=== PATIENT | male | born 1990 | race Caucasian/White ===

== ENCOUNTER 2019-09-16 17:14 | Emergency (ER) | payer OTHER ==
[~2019-09-16] VITALS: Ht 180 cm; Wt 76.2 kg
[2019-09-16] MEDS ORDERED: HYDROcodone/APAP 5 MG/325 MG (LORTAB) TAB PO ONE (17:30)
[2019-09-16] MEDS ORDERED: NS 100 ML (IVPB) BAG IV ONE (17:30)
[2019-09-16] MEDS ORDERED: IOHEXOL 350 MG/ML 100 ML (OMNIPAQUE 350) VIAL IV ONE (17:30)
[2019-09-16] MEDS ORDERED: HOLD METFORMIN - RECEIVED CONTRAST 20 ML VIAL IV SCH (17:30)
[2019-09-16] MEDS ORDERED: KETOROLAC 15 MG/ML VIAL IVP ONE (17:30)
[2019-09-16] MEDS ORDERED: CATHETER FLUSH 10 ML SYR IV PRN (17:30)
--- NOTE | 2019-09-16 17:35 | ED General ---
General Stated Complaint: RIGHT RIB PAIN Source of Information: Patient (BERNARD FERGUSON MD) History of Present Illness Date Seen by Provider: Sep 16, 2019 Time Seen by Provider: 17:30 Initial Comments Patient presenting to emergency department for evaluation of right lower chest and right upper quadrant abdominal pain that he thinks started last Monday morning at 2 in the morning when he was wrestling with a friend he felt some discomfort at that time but did not hurt later in the day so he did not think too much of it. 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 This is being considered Workmen's Comp. patient has a history of asthma but no other medical problems. He denies any fevers chills nausea vomiting productive cough. He appears uncomfortable but nontoxic with normal vital signs including normal oxygen saturation of 100%. (YUKI MAYNARD DO) Allergies and Home Medications Allergies Coded Allergies: No Known Drug Allergies (Unverified , 09/16/19) Home Medications Cyclobenzaprine HCl 10 Mg Tablet, 10 MG PO Q8H PRN for SPASMS Prescribed by: BERNARD FERGUSON on 09/16/191955 Ibuprofen 800 Mg Tablet, 800 MG PO Q8H PRN for PAIN Prescribed by: BERNARD FERGUSON on 09/16/191955 Patient Home Medication List Home Medication List Reviewed: Yes (YUKI MAYNARD DO) Home Medication List Reviewed: Yes (BERNARD FERGUSON MD) Review of Systems Review of Systems Constitutional: no symptoms reported EENTM: no symptoms reported Respiratory: short of breath Cardiovascular: chest pain Gastrointestinal: abdominal pain (RUQ) Genitourinary: no symptoms reported Musculoskeletal: no symptoms reported Skin: no symptoms reported Psychiatric/Neurological: No Symptoms Reported (YUKI MAYNARD DO) All Other Systems Reviewed Negative Unless Noted: Yes (YUKI MAYNARD DO) Past Mbawkbh-Udrjdx-Uhukdk Hx Patient Social History Recent Foreign Travel: No Contact w/Someone Who Travel: No (YUKI MAYNARD DO) Physical Exam Vital Signs Vital Signs - First Documented 09/16/19 09/16/19 17:20 19:47 Temp 36.7 Pulse 76 Resp 16 B/P (MAP) 147/90 (109) Pulse Ox 100 O2 Delivery Room Air (BERNARD FERGUSON MD) Vital Signs Capillary Refill : (YUKI MAYNARD DO) Height, Weight, BMI Height: '" Weight: lbs. oz. kg; BMI Method: General Appearance: No Apparent Distress, WD/WN HEENT: PERRL/EOMI Neck: Supple Respiratory: No Accessory Muscle Use, No Respiratory Distress, Wheezing (bilateral), Other (chest wall ttp on R lower ribs. Good aeration of lungs but BL wheezing noted.) Cardiovascular: Regular Rate, Rhythm Gastrointestinal: Soft, Tenderness (RUQ with no rebound or guarding.) Back: Normal Inspection Extremity: Normal Capillary Refill Neurologic/Psychiatric: Alert, Oriented x3 Skin: Warm/Dry (YUKI MAYNARD DO) Progress/Results/Core Measures Suspected Sepsis SIRS Temperature: Pulse: Respiratory Rate: Blood Pressure / Mean: (YUKI MAYNARD DO) Results/Orders Lab Results Laboratory Tests Test 09/16/19 17:37 Range/Units White Blood Count 8.3 4.3-11.0 10^3/uL Red Blood Count 4.87 4.35-5.85 10^6/uL Hemoglobin 15.7 13.3-17.7 G/DL Hematocrit 45 40-54 % Mean Corpuscular Volume 92 80-99 FL Mean Corpuscular Hemoglobin 32 25-34 PG Mean Corpuscular Hemoglobin Concent 35 32-36 G/DL Red Cell Distribution Width 11.6 10.0-14.5 % Platelet Count 227 130-400 10^3/uL Mean Platelet Volume 10.2 7.4-10.4 FL Neutrophils (%) (Auto) 61 42-75 % Lymphocytes (%) (Auto) 30 12-44 % Monocytes (%) (Auto) 6 0-12 % Eosinophils (%) (Auto) 2 0-10 % Basophils (%) (Auto) 1 0-10 % Neutrophils # (Auto) 5.1 1.8-7.8 X 10^3 Lymphocytes # (Auto) 2.5 1.0-4.0 X 10^3 Monocytes # (Auto) 0.5 0.0-1.0 X 10^3 Eosinophils # (Auto) 0.2 0.0-0.3 10^3/uL Basophils # (Auto) 0.1 0.0-0.1 10^3/uL Sodium Level 138 135-145 MMOL/L Potassium Level 4.1 3.6-5.0 MMOL/L Chloride Level 100 98-107 MMOL/L Carbon Dioxide Level 27 21-32 MMOL/L Anion Gap 11 5-14 MMOL/L Blood Urea Nitrogen 14 7-18 MG/DL Creatinine 0.98 0.60-1.30 MG/DL Estimat Glomerular Filtration Rate > 60 BUN/Creatinine Ratio 14 Glucose Level 78 70-105 MG/DL Calcium Level 9.7 8.5-10.1 MG/DL Corrected Calcium 9.3 8.5-10.1 MG/DL Total Bilirubin 0.3 0.1-1.0 MG/DL Aspartate Amino Transf (AST/SGOT) 27 5-34 U/L Alanine Aminotransferase (ALT/SGPT) 33 0-55 U/L Alkaline Phosphatase 59 40-136 U/L Total Protein 7.5 6.4-8.2 GM/DL Albumin 4.5 3.2-4.5 GM/DL Lipase 27 8-78 U/L (BERNARD FERGUSON MD) Medications Given in ED Current Medications Medications Dose Ordered Sig/Justin Route Start Time Stop Time Status Last Admin Dose Admin Acetaminophen/ Hydrocodone Bitart 2 tab ONCE ONCE PO 09/16/19 17:30 09/16/19 17:31 DC 09/16/19 17:41 2 TAB Iohexol 100 ml ONCE ONCE IV 09/16/19 17:30 09/16/19 17:32 DC 09/16/19 18:03 100 ML Ketorolac Tromethamine 15 mg ONCE ONCE IVP 09/16/19 17:30 09/16/19 17:31 DC 09/16/19 17:41 15 MG Sodium Chloride 10 ml NEEDED PRN IV 09/16/19 17:30 09/16/19 20:04 DC 09/16/19 18:03 10 ML Sodium Chloride 100 ml ONCE ONCE IV 09/16/19 17:30 09/16/19 17:32 DC 09/16/19 18:03 100 ML (BERNARD FERGUSON MD) Vital Signs/I&O 09/16/19 09/16/19 17:20 19:47 Temp 36.7 Pulse 76 70 Resp 16 16 B/P (MAP) 147/90 (109) 136/90 Pulse Ox 100 98 O2 Delivery Room Air (BERNARD FERGUSON MD) Vital Signs/I&O Capillary Refill : (YUKI MAYNARD DO) Progress Note : Progress Note Given his appearance and benign physical exam and vital signs a suspect this is morbidly rib and abdominal wall contusion than anything else. He does say that he feels a pop and some shortness of breath so I will get CT imaging to rule out intra-thoracic or intra-abdominal trauma. It is possible he could have a pneumothorax. Rib fractures possibility as well. I will treat his pain check CT chest abdomen pelvis and reassess. Workup pending at time of shift change at 1800. Transfer of care to Dr. Ferguson. (YUKI MAYNARD DO) Progress Note #1: Time: 18:00 Progress Note I assumed care of the patient from Dr. Maynard at shift change. CT scan of his chest abdomen pelvis are pending. His lab work is also pending. Progress Note #2: Time: 18:38 Progress Note CBC and chemistry did not demonstrate any acute significant abnormalities. His CT scan came back with no definite fractures or signs of internal bleeding or acute injury. Will treat for acute contusion and muscle strain. Will review results with patient and his employer. Counseled on follow-up and have him see work comp for continued concerns and evaluation. (BERNARD FERGUSON MD) Diagnostic Imaging Diagonstic Imaging: CT Plain Films/CT/US/NM/MRI: chest, abdomen, pelvis Comments NAME: OFELIA PAYNE [facility] REC#: [id number] PT STATUS: REG ER : 1990 PHYSICIAN: YUKI MAYNARD DO ADMIT DATE: 09/16/19/ER FS Signed POSDate of Exam:09/16/19 CT CHEST/ABDOMEN/PELVIS W PROCEDURE: CT chest, abdomen, and pelvis with contrast. TECHNIQUE: Multiple contiguous axial images were obtained through the chest, abdomen, and pelvis after the administration of intravenous contrast. Auto Exposure Controls were utilized during the CT exam to meet ALARA standards for radiation dose reduction. INDICATION: Chest wall pain after wrestling. COMPARISON: None. CT chest: The heart size is within normal limits. No pericardial effusion is present. There is no mediastinal, hilar, or axillary lymphadenopathy. The lung windows demonstrate no pulmonary nodules or masses. There are no focal areas of consolidation. No pneumothoraces are present. No central endobronchial obstructing lesions are identified. There are no pleural effusions or pneumothorax. The osseous structures demonstrate no acute abnormalities. CT abdomen: The liver, spleen, pancreas, adrenal glands, and kidneys have a normal appearance. There is no pathologically enlarged mesenteric or retroperitoneal adenopathy. The bowel loops are nondilated. There is no free fluid or free air. The osseous structures are age-appropriate. Ureters and bladder are grossly normal. There is no free air, loculated collection, or adenopathy in the pelvis. IMPRESSION: 1. No acute abnormalities in the chest, abdomen and pelvis. No acute osseous abnormalities. Dictated by: Dictated on workstation # [id number] Dict: 09/16/191819 Trans: 09/16/191822 [facility] [id number] Interpreted by: HUBERT TSAI DO Electronically signed by: HUBERT TSAI DO 09/16/191822 (BERNARD FERGUSON MD) Departure Impression Primary Impression: Contusion of rib on right side Qualified Codes: S20.211A - Contusion of right front wall of thorax, initial encounter Additional Impressions: Muscle strain of anterior chest wall Muscle spasm Disposition: 01 HOME, SELF-CARE Condition: Stable Departure-Patient Inst. Decision time for Depature: 19:51 (BERNARD FERGUSON MD) Referrals: RUBI CARLOS MD NO,LOCAL PHYSICIAN (PCP) Primary Care Physician Patient Instructions: CHEST CONTUSION, Contusion (DC), Muscle Spasms (DC), Muscle Strain (DC) Add. Discharge Instructions: Light duty until cleared by Workers Compensation [facility]. Call in am to arrange follow up appointment. Follow restrictions below until cleared by Workers Compensation Clinic: No lifting, pulling and/or pushing over 10 pounds. No reaching above the shoulder/chest. No operating electrical equipment/dangerous machinery while taking muscle relaxers. Apply ice packs for 1st 1 or 2 days for 20 minutes 4 times a day. Scripts Ibuprofen (Ibuprofen) 800 Mg Tablet 800 MG PO Q8H PRN for PAIN for 10 Days, #30 TAB 0 Refills Prov: BERNARD FERGUSON MD 09/16/19 Cyclobenzaprine HCl (Cyclobenzaprine HCl) 10 Mg Tablet 10 MG PO Q8H PRN for SPASMS for 5 Days, #15 TAB 0 Refills Prov: BERNARD FERGUSON MD 09/16/19 YUKI MAYNARD DO Sep 16, 2019 17:35 BERNARD HARRELL MD Sep 16, 2019 18:40 POS
[2019-09-16 17:45] LABS: HEMATOCRIT 45 % (40-54); HEMOGLOBIN 15.7 G/DL (13.3-17.7); MEAN CORPUSCULAR HEMOGLOBIN 32 PG (25-34); MEAN CORPUSCULAR HGB CONC 35 G/DL (32-36); MEAN CORPUSCULAR VOLUME 92 FL (80-99); MEAN PLATELET VOLUME 10.2 FL (7.4-10.4); PLATELET COUNT 227 10^3/uL (130-400); RED CELL DISTRIBUTION WIDTH 11.6 % (10.0-14.5); WHITE BLOOD COUNT 8.3 10^3/uL (4.3-11.0)
[2019-09-16 17:46] LABS: BASOPHILS # (AUTO) 0.1 10^3/uL (0.0-0.1); BASOPHILS % (AUTO) 1 % (0-10); EOSINOPHILS # (AUTO) 0.2 10^3/uL (0.0-0.3); EOSINOPHILS % (AUTO) 2 % (0-10); LYMPHOCYTES # (AUTO) 2.5 X 10^3 (1.0-4.0); LYMPHOCYTES % (AUTO) 30 % (12-44); MONOCYTES # (AUTO) 0.5 X 10^3 (0.0-1.0); MONOCYTES % (AUTO) 6 % (0-12); NEUTROPHILS # (AUTO) 5.1 X 10^3 (1.8-7.8); NEUTROPHILS % (AUTO) 61 % (42-75)
[2019-09-16 18:10] LABS: ALANINE AMINOTRANSFERASE 33 U/L (0-55); ALBUMIN 4.5 GM/DL (3.2-4.5); ALKALINE PHOSPHATASE 59 U/L (40-136); BILIRUBIN,TOTAL 0.3 MG/DL (0.1-1.0); BUN/CREATININE RATIO 14; CALCIUM 9.7 MG/DL (8.5-10.1); CARBON DIOXIDE 27 MMOL/L (21-32); CHLORIDE 100 MMOL/L (98-107); CREATININE SERUM 0.98 MG/DL (0.60-1.30); GFR ESTIMATED > 60; GLUCOSE 78 MG/DL (70-105); LIPASE 27 U/L (8-78); POTASSIUM 4.1 MMOL/L (3.6-5.0); SODIUM 138 MMOL/L (135-145); TOTAL PROTEIN 7.5 GM/DL (6.4-8.2)
--- NOTE | 2019-09-16 18:24 | Diagnostic Imaging Report ---
PROCEDURE: CT chest, abdomen, and pelvis with contrast. TECHNIQUE: Multiple contiguous axial images were obtained through the chest, abdomen, and pelvis after the administration of intravenous contrast. Auto Exposure Controls were utilized during the CT exam to meet ALARA standards for radiation dose reduction. INDICATION: Chest wall pain after wrestling. COMPARISON: None. CT chest: The heart size is within normal limits. No pericardial effusion is present. There is no mediastinal, hilar, or axillary lymphadenopathy. The lung windows demonstrate no pulmonary nodules or masses. There are no focal areas of consolidation. No pneumothoraces are present. No central endobronchial obstructing lesions are identified. There are no pleural effusions or pneumothorax. The osseous structures demonstrate no acute abnormalities. CT abdomen: The liver, spleen, pancreas, adrenal glands, and kidneys have a normal appearance. There is no pathologically enlarged mesenteric or retroperitoneal adenopathy. The bowel loops are nondilated. There is no free fluid or free air. The osseous structures are age-appropriate. Ureters and bladder are grossly normal. There is no free air, loculated collection, or adenopathy in the pelvis. IMPRESSION: 1. No acute abnormalities in the chest, abdomen and pelvis. No acute osseous abnormalities. Dictated by: Dictated on workstation # [id number]
[2019-09-16 19:47] VITALS: BP 136/90
[2019-09-16] MEDS ORDERED: CYCL10TA9 PO (19:56)
[2019-09-16] MEDS ORDERED: IBUP-1780 PO (19:56)
== END 2019-09-16 20:03 | disposition home or self-care (01) ==
LOC: ER FS 17:18
DX: S29.011A Strain of muscle and tendon of front wall of thorax, initial encounter (principal); J45.909 Unspecified asthma, uncomplicated; X50.1XXA Overexertion from prolonged static or awkward postures, initial encounter; Y92.59 Other trade areas as the place of occurrence of the external cause
CPT/HCPCS: 36415; 71260; 74177; 80053; 83690; 85025

== ENCOUNTER 2019-11-29 16:45 | Emergency (ER) | payer OTHER, BC ==
[~2019-11-29] VITALS: Ht 180 cm; Wt 78.6 kg
[~2019-11-29 16:45] MED LIST: CYCL10TA9 PO; IBUP-1780 PO
--- NOTE | 2019-11-29 17:19 | ED Head Injury ---
General Chief Complaint: Head/Cervical Problems Stated Complaint: HEAD/NECK PAIN Source: patient Exam Limitations: no limitations History of Present Illness Date Seen by Provider: Nov 29, 2019 Time Seen by Provider: 17:04 Initial Comments 29-year-old male presents to the emergency room escorted by a follow coworker. Patient was working at the [employer] and sustained injury to his head and neck. Patient states that he cardboard box fell and struck him on the head strained his neck. He denies loss of consciousness however he says something popped in his head. He also felt significant pain in his neck and has spasm in his neck. Patient was brought from the work site to the emergency room. Patient gives informed consent for diagnostic and therapeutic services. Patient denies any history of cardiovascular pulmonary GI or renal disease. He is a smoker. Examination shows significant caries in the mouth that needs dental work. He had spasm in both the left and right cervical paraspinal muscles and he had discomfort on the left frontal and temporal areas of his head. Occurred: just prior to arrival (proximately 1-1/2-2 hours prior to admission) Location: frontal (left side), temporal (left side), parietal (left side) Method of Injury: direct blow (cardboard box hitting head) Loss of Consciousness: no loss of consciousness Associated Systoms: Headaches, Other (neckache with decreased range of motion) Allergies and Home Medications Allergies Coded Allergies: No Known Drug Allergies (Unverified , 09/16/19) Home Medications Cyclobenzaprine HCl 10 Mg Tablet, 10 MG PO Q8H PRN for SPASMS Prescribed by: BERNARD FERGUSON on 09/16/191955 Ibuprofen 800 Mg Tablet, 800 MG PO Q8H PRN for PAIN Prescribed by: BERNARD FERGUSON on 09/16/191955 Patient Home Medication List Home Medication List Reviewed: Yes Review of Systems Review of Systems Constitutional: malaise, weakness Eyes: No Symptoms Reported Ears, Nose, Mouth, Throat: no symptoms reported Respiratory: no symptoms reported (but patient is a smoker) Cardiovascular: no symptoms reported Gastrointestinal: no symptoms reported Genitourinary: no symptoms reported Musculoskeletal: back pain, neck pain Skin: no symptoms reported Psychiatric/Neurological: Headache Endocrine: No Symptoms Reported Hematologic/Lymphatic: No Symptoms Reported Past Bkssjzn-Mxjeho-Hhgspm Hx Patient Social History Type Used: Cigarettes 2nd Hand Smoke Exposure: Yes Recent Foreign Travel: No Contact w/Someone Who Travel: No Recent Hopitalizations: No Seasonal Allergies Seasonal Allergies: No Past Medical History Surgeries: Yes Tonsillectomy Respiratory: Yes Asthma Cardiac: No Neurological: No Genitourinary: No Gastrointestinal: No Musculoskeletal: No Endocrine: No HEENT: No Cancer: No Psychosocial: No Integumentary: No Family Medical History Reviewed Nursing Family Hx Physical Exam Vital Signs Vital Signs - First Documented 11/29/19 16:50 Temp 37.0 Pulse 81 Resp 18 B/P (MAP) 143/100 (114) Pulse Ox 100 O2 Delivery Room Air Capillary Refill : Height, Weight, BMI Height: '" Weight: lbs. oz. kg; 23.00 BMI Method: General Appearance: WD/WN, moderate distress HEENT: PERRL/EOMI, normal ENT inspection, pharynx normal, other (some swelling in the left periorbital and left forehead area) Neck: limited range of motion, tender lateral Cardiovascular: regular rate, rhythm, no edema, no gallop, no JVD, no murmur Respiratory: chest non-tender, lungs clear, normal breath sounds, no respiratory distress, no accessory muscle use Gastrointestinal: normal bowel sounds, non tender, soft, no organomegaly, no pulsatile mass Back: normal inspection, no CVA tenderness Extremities: normal range of motion, non-tender, normal inspection, no pedal edema, no calf tenderness Psychiatric: alert, oriented x 3 Crainal Nerves: normal hearing, normal speech, PERRL Coordination/Gait: normal gait, negative Romberg's sign Motor/Sensory: no motor deficit, no sensory deficit, no pronator drift Reflexes: 2+ Bicep (R), 2+ Bicep (L) Skin: normal color, warm/dry Stuart Coma Score Best Eye Response: (4) Open Spontaneously Best Verbal Response: (5) Oriented Best Motor Response: (6) Obeys Commands Progress/Results/Core Measures Results/Orders My Orders Orders - RIN LOMBARDO DO Ct Head/Cervical Spine Wo (11/29/19 17:13) Vital Signs/I&O 11/29/19 16:50 Temp 37.0 Pulse 81 Resp 18 B/P (MAP) 143/100 (114) Pulse Ox 100 O2 Delivery Room Air Progress Progress Note : Time: 18:[address] scan does show soft tissue swelling in the left periorbital and left frontal area. Patient also has spasm in the cervical paraspinal muscles. FINDINGS: CT head: The ventricles and cortical sulci are age appropriate. There is no midline shift or mass effect. No acute intracranial hemorrhage is seen. There is no CT evidence of acute territorial ischemia. No focal masses or collections are present. The calvarium is intact. Mild soft tissue edema is seen overlying the left forehead and left orbit. No postseptal inflammatory changes. The globes are symmetric and intact. The visualized paranasal sinuses are clear. CT cervical spine: No acute fracture or dislocation is seen in the cervical spine. There is reversal of the normal lordotic curvature of the cervical spine centered at the C4-C5 level, likely due to positioning. No focal osseous lesions. Vertebral body heights are well-maintained. The craniocervical junction is well-maintained. Mild degenerative changes are seen in the cervical spine with disc osteophyte complexes and uncovertebral arthropathy. Soft tissues of the neck are unremarkable. IMPRESSION: 1. No hemorrhage or focal intra-axial mass. No CT evidence of large acute territorial ischemia. 2. No acute fracture or dislocation in the cervical spine. 3. Mild soft tissue edema overlying the left forehead and left orbit. No evidence of globe rupture or postseptal inflammatory changes. Departure Impression Primary Impression: Concussion without loss of consciousness Additional Impression: Neck sprain Disposition: 01 HOME, SELF-CARE Condition: Stable Departure-Patient Inst. Decision time for Depature: 18:33 Referrals: NO,LOCAL PHYSICIAN (PCP) Primary Care Physician Patient Instructions: Neck Sprain (DC), Concussion in Adults Add. Discharge Instructions: 29-year-old male has a injury to the head with a blunt hit from a cardboard box causing a mild concussion syndrome. Patient does have minimal swelling of his left periorbital and left frontal areas. Patient also has a neck strain and should gently stretch net and use ice intermittently on the neck. Patient may use acetaminophen or ibuprofen for discomfort. He should follow up with his primary care provider or occupational medicine expected he should be up to return to work on December 02 however if he is not able to do so he needs to see his primary care provider to give him a extended excuse. CT scan results: FINDINGS: CT head: The ventricles and cortical sulci are age appropriate. There is no midline shift or mass effect. No acute intracranial hemorrhage is seen. There is no CT evidence of acute territorial ischemia. No focal masses or collections are present. The calvarium is intact. Mild soft tissue edema is seen overlying the left forehead and left orbit. No postseptal inflammatory changes. The globes are symmetric and intact. The visualized paranasal sinuses are clear. CT cervical spine: No acute fracture or dislocation is seen in the cervical spine. There is reversal of the normal lordotic curvature of the cervical spine centered at the C4-C5 level, likely due to positioning. No focal osseous lesions. Vertebral body heights are well-maintained. The craniocervical junction is well-maintained. Mild degenerative changes are seen in the cervical spine with disc osteophyte complexes and uncovertebral arthropathy. Soft tissues of the neck are unremarkable. IMPRESSION: 1. No hemorrhage or focal intra-axial mass. No CT evidence of large acute territorial ischemia. 2. No acute fracture or dislocation in the cervical spine. 3. Mild soft tissue edema overlying the left forehead and left orbit. No evidence of globe rupture or postseptal inflammatory changes. All discharge instructions reviewed with patient and/or family. Voiced understanding. Scripts Ibuprofen (Ibuprofen) 800 Mg Tablet 800 MG PO Q8H PRN for PAIN, #30 TAB 0 Refills Prov: RIN LOMBARDO DO 11/29/19 Work/School Note: Work Release Form Date Seen in the Emergency Department: Nov 29, 2019 Return to Work: Dec 02, 2019 Other Restrictions Listed Below: Follow-up with primary care or occupational medicine. Rest fluids gentle stretches ice for pain decrease swelling follow-up with primary care RIN LOMBARDO DO Nov 29, 2019 17:19
--- NOTE | 2019-11-29 17:54 | Diagnostic Imaging Report ---
PROCEDURE: CT head and CT cervical spine without contrast. TECHNIQUE: Multiple contiguous axial images were obtained through the brain and cervical spine without the use of intravenous contrast. Sagittal and coronal reformations through the cervical spine were then performed. Auto Exposure Controls were utilized during the CT exam to meet ALARA standards for radiation dose reduction. INDICATION: Box fell and hit him in the left orbital region. Headache. Lightheadedness. Neck pain. Scalp contusion. COMPARISON: None. FINDINGS: CT head: The ventricles and cortical sulci are age appropriate. There is no midline shift or mass effect. No acute intracranial hemorrhage is seen. There is no CT evidence of acute territorial ischemia. No focal masses or collections are present. The calvarium is intact. Mild soft tissue edema is seen overlying the left forehead and left orbit. No postseptal inflammatory changes. The globes are symmetric and intact. The visualized paranasal sinuses are clear. CT cervical spine: No acute fracture or dislocation is seen in the cervical spine. There is reversal of the normal lordotic curvature of the cervical spine centered at the C4-C5 level, likely due to positioning. No focal osseous lesions. Vertebral body heights are well-maintained. The craniocervical junction is well-maintained. Mild degenerative changes are seen in the cervical spine with disc osteophyte complexes and uncovertebral arthropathy. Soft tissues of the neck are unremarkable. IMPRESSION: 1. No hemorrhage or focal intra-axial mass. No CT evidence of large acute territorial ischemia. 2. No acute fracture or dislocation in the cervical spine. 3. Mild soft tissue edema overlying the left forehead and left orbit. No evidence of globe rupture or postseptal inflammatory changes. Dictated by: Dictated on workstation # [id number]
[2019-11-29] MEDS ORDERED: IBUP-1780 PO (18:36)
[2019-11-29 18:48] VITALS: BP 153/91
== END 2019-11-29 18:45 | disposition home or self-care (01) ==
LOC: EDUNIT# 16:45 → ER FS 16:47
DX: S06.0X0A Concussion without loss of consciousness, initial encounter (principal); S13.9XXA Sprain of joints and ligaments of unspecified parts of neck, initial encounter; Z77.22 Contact with and (suspected) exposure to environmental tobacco smoke (acute) (chronic); Z90.89 Acquired absence of other organs; W20.8XXA Other cause of strike by thrown, projected or falling object, initial encounter; Y92.512 Supermarket, store or market as the place of occurrence of the external cause
CPT/HCPCS: 70450; 72125

== ENCOUNTER → 2021-04-13 | Outpatient (CLI) | payer BC ==
--- NOTE | 2021-04-13 16:51 | Diagnostic Imaging Report ---
PROCEDURE: MRI lumbar spine. TECHNIQUE: Multiplanar, multisequence MRI of the lumbar spine was performed without contrast. INDICATION: Right-sided sciatica, lower back pain COMPARISON: CT dated 09/16/2019. FINDINGS: Five lumbar type vertebral bodies are present. Alignment of the lumbar spine is well maintained. Very minimal endplate degenerative changes are identified at L5/S1. Otherwise, the vertebral body heights are well-maintained. Round T1 and T2 hyperintensity within the L4 vertebral body is consistent with a benign hemangioma. Bone marrow signal intensity is otherwise unremarkable. The conus medullaris terminates at the L2 level. The paraspinal soft tissues are unremarkable. T12/L1: No significant central canal or neuroforaminal stenosis. L1/L2: No significant central canal or neuroforaminal stenosis. L2/L3: No significant and central canal or neuroforaminal stenosis. L3/L4: No significant central canal or neuroforaminal stenosis. L4/L5: No significant central canal or neuroforaminal stenosis. L5/S1: Disc desiccation and mild disc space height loss. A moderate-sized right paracentral disc protrusion is present extending to the central and right foraminal locations. This is effacing the right lateral recess and impinging the traversing right S1 nerve root. Mild right neuroforaminal stenosis. Minimal left neuroforaminal stenosis. IMPRESSION: Focal disc protrusion at the L5/S1 level is present with resulting impingement of the traversing right S1 nerve root. Mild degenerative changes without acute fracture. Dictated by: Dictated on workstation # [id number]
== END ==
LOC: RAD 15:30
PROVIDERS: ATTEND Nurse Practitioner
DX: M47.817 Spondylosis without myelopathy or radiculopathy, lumbosacral region (principal); M51.27 Other intervertebral disc displacement, lumbosacral region
CPT/HCPCS: 72148

== ENCOUNTER 2022-08-18 19:05 | Emergency (ER) | payer SELFPAY ==
[~2022-08-18] VITALS: Ht 180.3 cm; Wt 72.6 kg
[~2022-08-18 19:05] MED LIST changes: +CYCL10TA25 PO; -CYCL10TA9 PO
[2022-08-18 19:30] LABS: BASOPHILS # (AUTO) 0.1 10^3/uL (0.0-0.1); BASOPHILS % (AUTO) 1 % (0-10); EOSINOPHILS # (AUTO) 0.2 10^3/uL (0.0-0.3); EOSINOPHILS % (AUTO) 2 % (0-10); HEMATOCRIT 49 % (40-54); HEMOGLOBIN 17.4 g/dL (13.3-17.7); LYMPHOCYTES # (AUTO) 2.8 10^3/uL (1.0-4.0); LYMPHOCYTES % (AUTO) 25 % (12-44); MEAN CORPUSCULAR HEMOGLOBIN 32 pg (25-34); MEAN CORPUSCULAR HGB CONC 36 g/dL (32-36); MEAN CORPUSCULAR VOLUME 90 fL (80-99); MEAN PLATELET VOLUME 9.5 fL (9.0-12.2); MONOCYTES # (AUTO) 0.5 10^3/uL (0.0-1.0); MONOCYTES % (AUTO) 5 % (0-12); NEUTROPHILS # (AUTO) 7.6 10^3/uL (1.8-7.8); NEUTROPHILS % (AUTO) 68 % (42-75); PLATELET COUNT 261 10^3/uL (130-400); WHITE BLOOD COUNT 11.2 10^3/uL (4.3-11.0)
[2022-08-18 19:31] LABS: BILIRUBIN,URINE NEGATIVE (NEGATIVE); CLARITY,URINE CLEAR; COLOR,URINE YELLOW; GLUCOSE, URINE (UA) NEGATIVE (NEGATIVE); KETONES,URINE NEGATIVE (NEGATIVE); LEUKOCYTE ESTERASE ,URINE NEGATIVE (NEGATIVE); NITRITE,URINE NEGATIVE (NEGATIVE); PH,URINE 7.5 (5-9); PROTEIN,URINE NEGATIVE (NEGATIVE)
[2022-08-18 19:38] LABS: BACTERIA,URINE NEGATIVE /HPF; SQUAMOUS EPITHELIAL CELL,UR RARE /HPF; WBC,URINE RARE /HPF
[2022-08-18 19:42] LABS: AMPHETAMINE SCREEN, URINE NEGATIVE (NEGATIVE); BARBITURATE SCREEN URINE NEGATIVE (NEGATIVE); BENZODIAZEPINES SCREEN URINE NEGATIVE (NEGATIVE); CANNABINOID SCREEN, URINE NEGATIVE (NEGATIVE); COCAINE SCREEN URINE NEGATIVE (NEGATIVE); METHADONE STAT NEGATIVE (NEGATIVE); OPIATE SCREEN URINE NEGATIVE (NEGATIVE); OXYCODONE STAT NEGATIVE (NEGATIVE); PROPOXYPHENE STAT NEGATIVE (NEGATIVE); TRICYCLIC ANTIDEPRESSANTS SCRE NEGATIVE (NEGATIVE)
[2022-08-18 19:50] LABS: CHLORIDE 99 MMOL/L (98-107); POTASSIUM 4.2 MMOL/L (3.6-5.0); SODIUM 137 MMOL/L (135-145)
[2022-08-18 19:51] LABS: ACETAMINOPHEN < 10 UG/ML (10-30); BUN/CREATININE RATIO 7; CALCIUM 9.8 MG/DL (8.5-10.1); CARBON DIOXIDE 24 MMOL/L (21-32); CREATININE SERUM 1.12 MG/DL (0.60-1.30); GFR ESTIMATED 90; GLUCOSE 96 MG/DL (70-105)
--- NOTE | 2022-08-18 20:32 | ED Psychosocial ---
General Chief Complaint: Psych/Social Disorder Stated Complaint: SUICIDAL Source: patient History of Present Illness Date Seen by Provider: Aug 18, 2022 Time Seen by Provider: 20:32 Initial Comments 31-year-old male presenting with law enforcement after he had a anxiety attack and was [place] the [place]. He denies being suicidal or having suicidal thoughts. He states that he was just really anxious and had recently stopped drinking alcohol as well as broke up with his girlfriend of 4 years. He states he does have family and friends that he can uses support and resources. He feels like he needs to be on a mood stabilizer but does not have any insurance so he has not seen a counselor or primary care provider. He denies any homicidal thoughts. He states he has not drank alcohol for over a month and he has not used meth or any drugs for 6 years. Timing/Duration: this evening Severity: severe Associated Symptoms: anxiety, insomnia Allergies and Home Medications Allergies Coded Allergies: No Known Drug Allergies (Unverified , 09/16/19) Patient Home Medication List Home Medication List Reviewed: Yes Cyclobenzaprine HCl (Cyclobenzaprine HCl) 10 Mg Tablet, 10 MG PO Q8H PRN for SPASMS Prescribed by: BERNARD FERGUSON on 09/16/191955 Ibuprofen (Ibuprofen) 800 Mg Tablet, 800 MG PO Q8H PRN for PAIN Prescribed by: BERNARD FERGUSON on 09/16/191955 Ibuprofen (Ibuprofen) 800 Mg Tablet, 800 MG PO Q8H PRN for PAIN Prescribed by: RIN LOMBARDO on 11/29/191835 Review of Systems Constitutional: No chills, No fever EENTM: no symptoms reported Respiratory: no symptoms reported Cardiovascular: palpitations (with anxiety) Gastrointestinal: no symptoms reported Genitourinary: no symptoms reported Musculoskeletal: no symptoms reported Skin: no symptoms reported Psychiatric/Neurological: Anxiety Past Zrealua-Tiotns-Mnassy Hx Patient Social History Tobacco Use?: Yes Smoking Status: Current Everyday Smoker Substance use?: No Alcohol Use?: No (quit drinking 1 month ago) Seasonal Allergies Seasonal Allergies: No Past Medical History Surgeries: Yes Tonsillectomy Respiratory: Yes Asthma Cardiac: No Neurological: No Genitourinary: No Gastrointestinal: No Musculoskeletal: No Endocrine: No HEENT: No Cancer: No Psychosocial: No Integumentary: No Physical Exam Vital Signs - First Documented 08/18/22 19:05 Temp 36.3 Pulse 114 Resp 16 B/P (MAP) 127/112 (117) Pulse Ox 97 O2 Delivery Room Air Capillary Refill : Height, Weight, BMI Height: '" Weight: lbs. oz. 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, no motor/sensory deficits, alert, normal mood/affect, oriented x 3 Appearance/Memory: appropriate appearance, appropriate insight, neat Behavior/Eye Contact: cooperative, good eye contact, normal speech Thoughts/Hallucinations: normal thought pattern, no apparent hallucination Skin: normal color, warm/dry Progress/Results/Core Measures Results/Orders Lab Results Laboratory Tests Test 08/18/22 19:20 Range/Units White Blood Count 11.2 H 4.3-11.0 10^3/uL Red Blood Count 5.41 4.30-5.52 10^6/uL Hemoglobin 17.4 13.3-17.7 g/dL Hematocrit 49 40-54 % Mean Corpuscular Volume 90 80-99 fL Mean Corpuscular Hemoglobin 32 25-34 pg Mean Corpuscular Hemoglobin Concent 36 32-36 g/dL Red Cell Distribution Width 11.5 10.0-14.5 % Platelet Count 261 130-400 10^3/uL Mean Platelet Volume 9.5 9.0-12.2 fL Immature Granulocyte % (Auto) 0 % Neutrophils (%) (Auto) 68 42-75 % Lymphocytes (%) (Auto) 25 12-44 % Monocytes (%) (Auto) 5 0-12 % Eosinophils (%) (Auto) 2 0-10 % Basophils (%) (Auto) 1 0-10 % Neutrophils # (Auto) 7.6 1.8-7.8 10^3/uL Lymphocytes # (Auto) 2.8 1.0-4.0 10^3/uL Monocytes # (Auto) 0.5 0.0-1.0 10^3/uL Eosinophils # (Auto) 0.2 0.0-0.3 10^3/uL Basophils # (Auto) 0.1 0.0-0.1 10^3/uL Immature Granulocyte # (Auto) 0.0 0.0-0.1 10^3/uL Urine Color YELLOW Urine Clarity CLEAR Urine pH 7.5 5-9 Urine Specific Hubbard 1.010 L 1.016-1.022 Urine Protein NEGATIVE NEGATIVE Urine Glucose (UA) NEGATIVE NEGATIVE Urine Ketones NEGATIVE NEGATIVE Urine Nitrite NEGATIVE NEGATIVE Urine Bilirubin NEGATIVE NEGATIVE Urine Urobilinogen 0.2 < = 1.0 MG/DL Urine Leukocyte Esterase NEGATIVE NEGATIVE Urine RBC (Auto) NEGATIVE NEGATIVE Urine RBC NONE /HPF Urine WBC RARE /HPF Urine Squamous Epithelial Cells RARE /HPF Urine Crystals NONE /LPF Urine Bacteria NEGATIVE /HPF Urine Casts NONE /LPF Urine Mucus NEGATIVE /LPF Urine Culture Indicated NO Sodium Level 137 135-145 MMOL/L Potassium Level 4.2 3.6-5.0 MMOL/L Chloride Level 99 98-107 MMOL/L Carbon Dioxide Level 24 21-32 MMOL/L Anion Gap 14 5-14 MMOL/L Blood Urea Nitrogen 8 7-18 MG/DL Creatinine 1.12 0.60-1.30 MG/DL Estimat Glomerular Filtration Rate 90 BUN/Creatinine Ratio 7 Glucose Level 96 70-105 MG/DL Calcium Level 9.8 8.5-10.1 MG/DL Urine Opiates Screen NEGATIVE NEGATIVE Urine Oxycodone Screen NEGATIVE NEGATIVE Urine Methadone Screen NEGATIVE NEGATIVE Urine Propoxyphene Screen NEGATIVE NEGATIVE Acetaminophen Level < 10 L 10-30 UG/ML Urine Barbiturates Screen NEGATIVE NEGATIVE Ur Tricyclic Antidepressants Screen NEGATIVE NEGATIVE Urine Phencyclidine Screen NEGATIVE NEGATIVE Urine Amphetamines Screen NEGATIVE NEGATIVE Urine Methamphetamines Screen NEGATIVE NEGATIVE Urine Benzodiazepines Screen NEGATIVE NEGATIVE Urine Cocaine Screen NEGATIVE NEGATIVE Urine Cannabinoids Screen NEGATIVE NEGATIVE Serum Alcohol < 10 <10 MG/DL My Orders Orders - BERNARD FERGUSON MD Ua Culture If Indicated (08/18/22 19:20) Cbc With Automated Diff (08/18/22 19:20) Basic Metabolic Panel (08/18/22 19:20) Acetaminophen (08/18/22 19:20) Alcohol (08/18/22 19:20) Drug Screen Stat (Urine) (08/18/22 19:20) Ekg Tracing (08/18/22 19:20) Hydroxyzine Cap/Tab (Vistaril) (08/18/22 22:44) Hydroxyzine Cap/Tab (Vistaril) (08/18/22 22:47) Vital Signs/I&O 08/18/22 08/18/22 19:05 22:50 Temp 36.3 36.3 Pulse 114 110 Resp 16 16 B/P (MAP) 127/112 (117) 124/88 Pulse Ox 97 98 O2 Delivery Room Air Room Air Progress Progress Note #1: Progress Note Obtain psychiatric screening labs to medically clear the patient. We will place an constant observation until he is able to be screened by mental health. Progress Note #2: Progress Note Labs are all stable without acute significant normality to account for his symptoms. He is medically clear and stable to speak with mental health. We will send information to [facility] and await their screening Progress Note #3: Progress Note After speaking with [facility] for his mental health screening it was determined that she could be discharged to home with a safety plan. Initial ECG Impression Date: Aug 18, 2022 Initial ECG Impression Time: 19:29 Initial ECG Rate: 86 Initial ECG Rhythm: Normal Sinus Initial ECG Comparisson: No Previous ECG Available Comment Normal sinus rhythm with a heart rate of 86 bpm. OH interval [address] elevation. QT interval 328 ms with a QTc interval 371 ms. There is no prior tracing available for comparison. I personally reviewed and interpreted the electrocardiogram. Departure Impression Primary Impression: Anxiety Additional Impression: Stress reaction Disposition: 01 HOME, SELF-CARE Condition: Stable Departure-Patient Inst. Decision time for Depature: 22:30 Referrals: NO,LOCAL PHYSICIAN (PCP) Primary Care Physician [facility] Patient Instructions: Anxiety, Adult ED, Tips on Positive Thinking, Stress Add. Discharge Instructions: Follow safety plan from [facility]. You could establish care with [facility] as they have federal funding to see patients, even without insurance. Their number is [phone]. All discharge instructions reviewed with patient and/or family. Voiced unders tanding. BERNARD FERGUSON MD Aug 18, 2022 20:32
[2022-08-18] MEDS ORDERED: hydrOXYzine (VISTARIL/ATARAX) 25 MG capsule/tablet PO STA (22:44)
[2022-08-18] MEDS ORDERED: hydrOXYzine (VISTARIL/ATARAX) 25 MG capsule/tablet ONE (22:47)
[2022-08-18 22:50] VITALS: BP 124/88
== END 2022-08-18 22:57 | disposition home or self-care (01) ==
LOC: EDUNIT# 19:05 → ER FS 19:06
DX: F41.9 Anxiety disorder, unspecified (principal); F43.9 Reaction to severe stress, unspecified; F17.200 Nicotine dependence, unspecified, uncomplicated; Z28.310 Unvaccinated for COVID-19
CPT/HCPCS: 36415; 80048; 80306; 81000; 85025; 93005; 99284; G0480 ×2; 80320; 80329

== ENCOUNTER 2023-05-05 19:50 | Emergency (ER) | payer SELFPAY ==
[~2023-05-05] VITALS: Ht 180.3 cm; Wt 83.9 kg
[2023-05-05] MEDS ORDERED: NS IV 1000 ML 1,000 ML IV STA (20:08)
[2023-05-05 20:12] LABS: BASOPHILS # (AUTO) 0.1 10^3/uL (0.0-0.1); BASOPHILS % (AUTO) 1 % (0-10); EOSINOPHILS # (AUTO) 0.2 10^3/uL (0.0-0.3); EOSINOPHILS % (AUTO) 2 % (0-10); HEMATOCRIT 47 % (40-54); HEMOGLOBIN 16.8 g/dL (13.3-17.7); LYMPHOCYTES # (AUTO) 2.9 10^3/uL (1.0-4.0); LYMPHOCYTES % (AUTO) 28 % (12-44); MEAN CORPUSCULAR HEMOGLOBIN 33 pg (25-34); MEAN CORPUSCULAR HGB CONC 36 g/dL (32-36); MEAN CORPUSCULAR VOLUME 91 fL (80-99); MONOCYTES # (AUTO) 0.7 10^3/uL (0.0-1.0); MONOCYTES % (AUTO) 7 % (0-12); NEUTROPHILS # (AUTO) 6.5 10^3/uL (1.8-7.8); NEUTROPHILS % (AUTO) 63 % (42-75); PLATELET COUNT 218 10^3/uL (130-400); WHITE BLOOD COUNT 10.4 10^3/uL (4.3-11.0)
[2023-05-05 20:23] LABS: ALANINE AMINOTRANSFERASE 37 U/L (0-55); ALBUMIN 4.7 GM/DL (3.2-4.5); ALKALINE PHOSPHATASE 68 U/L (40-136); BILIRUBIN,TOTAL 0.6 MG/DL (0.1-1.0); BUN/CREATININE RATIO 12; CALCIUM 9.5 MG/DL (8.5-10.1); CARBON DIOXIDE 22 MMOL/L (21-32); CHLORIDE 101 MMOL/L (98-107); CREATININE SERUM 1.21 MG/DL (0.60-1.30); GFR ESTIMATED 81; GLUCOSE 89 MG/DL (70-105); LIPASE 25 U/L (8-78); POTASSIUM 3.8 MMOL/L (3.6-5.0); SODIUM 136 MMOL/L (135-145); TOTAL PROTEIN 7.5 GM/DL (6.4-8.2)
--- NOTE | 2023-05-05 20:57 | ED General ---
General Chief Complaint: Exposure Stated Complaint: HEAT EXPOSURE,DIZZY,LIGHTHEADED,NAUSEA Nursing Triage Note: Patient states that he was riding in his car all day with no air conditioning. Patient reports that he has been trying to drink water. 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 Patient states he has been unable to cool off all day and has been in the heat all day. Patient is complaining of dizziness and believes he got to hot. Source of Information: Patient History of Present Illness Date Seen by Provider: May 05, 2023 Time Seen by Provider: 20:08 Initial Comments 32 yo male presenting with feeling like he might pass out. He had been in the heat today and his vehicle does not have AC. 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 He felt like he was getting over heated and could not cool down. He felt like he might pass out. He had to leave work as nobody would trade out to his spot to give him a break from drive through. He was concerned that he could have a heat stroke. Timing/Duration: 4-6 Hours Severity: Severe Modifying Factors: improves with Rest (in cool air and getting to lay on cot in the ED was helping); worse with Other (worsened with activity and being exposed to the heat) Associated Systoms: No Chest Pain, No Cough, No Diaphoresis, No Fever/Chills; Headaches; No Loss of Appetite, No Nausea/Vomiting, No Rash, No Seizure, No Shortness of Air, No Syncope, No Weakness; Other (near syncope) Allergies and Home Medications Allergies Coded Allergies: No Known Drug Allergies (Unverified , 09/16/19) Patient Home Medication List Home Medication List Reviewed: Yes Cyclobenzaprine HCl (Cyclobenzaprine HCl) 10 Mg Tablet, 10 MG PO Q8H PRN for SPASMS Prescribed by: BERNARD FERGUSON on 09/16/191955 Ibuprofen (Ibuprofen) 800 Mg Tablet, 800 MG PO Q8H PRN for PAIN Prescribed by: BERNARD FERGUSON on 09/16/191955 Ibuprofen (Ibuprofen) 800 Mg Tablet, 800 MG PO Q8H PRN for PAIN Prescribed by: RIN LOMBARDO on 1/24/20 1836 Review of Systems Review of Systems Constitutional: see HPI; No chills, No fever EENTM: No vision loss, No nose congestion Respiratory: No cough, No short of breath Cardiovascular: No chest pain Gastrointestinal: no symptoms reported Genitourinary: decreased output Musculoskeletal: no symptoms reported Skin: no symptoms reported Psychiatric/Neurological: See HPI Past Avkmnhs-Fjjnog-Ywxhft Hx Patient Social History Tobacco Use?: Yes Tobacco type used: Cigarettes Smoking Status: Current Everyday Smoker Substance use?: Yes Substance type: Other Additional substance use comme: [employer] 8 Edibles Substance frequency: Once in a while Alcohol Use?: Yes Alcohol type: Beer Alcohol Frequency: Daily Pt feels they are or have been: No Immunizations Up To Date First/Initial COVID19 Vaccinat: unvaccinated Seasonal Allergies Seasonal Allergies: No Past Medical History Surgery/Hospitalization HX: anxiety, depression Surgeries: Yes Tonsillectomy Respiratory: Yes Asthma Cardiac: No Neurological: No Genitourinary: No Gastrointestinal: No Musculoskeletal: No Endocrine: No HEENT: No Cancer: No Psychosocial: No Integumentary: No Physical Exam Vital Signs Vital Signs - First Documented Capillary Refill : Less Than 3 Seconds Height, Weight, BMI Height: '" Weight: lbs. oz. kg; 25.00 BMI Method: General Appearance: Anxious, Mild Distress HEENT: PERRL/EOMI, Pharynx Normal; No Moist Mucous Membranes (slightly dry mucous membranes) Neck: Full Range of Motion, Normal Inspection, Non Tender, Supple Respiratory: Chest Non Tender, Lungs Clear, Normal Breath Sounds, No Accessory Muscle Use, No Respiratory Distress Cardiovascular: Regular Rate, Rhythm, Normal Peripheral Pulses Gastrointestinal: Normal Bowel Sounds, No Pulsatile Mass, Non Tender, Soft Rectal: Deferred Extremity: Normal Capillary Refill, Normal Inspection, No Pedal Edema Neurologic/Psychiatric: Alert, Oriented x3, environmental sampler II-XII Norm as Tested Skin: Normal Color, Warm/Dry Progress/Results/Core Measures Suspected Sepsis Recent Fever Within 48 Hours: No Infection Criteria Present: None New/Unexplained Altered Menta: No SIRS Temperature: Pulse: 90 Respiratory Rate: 18 Laboratory Tests 05/05/23 19:57: White Blood Count 10.4 Blood Pressure 150 /101 Mean: 117 Laboratory Tests 05/05/23 19:57: Creatinine 1.21, Platelet Count 218, Total Bilirubin 0.6 Results/Orders Lab Results Laboratory Tests Test 05/05/23 19:57 Range/Units White Blood Count 10.4 4.3-11.0 10^3/uL Red Blood Count 5.16 4.30-5.52 10^6/uL Hemoglobin 16.8 13.3-17.7 g/dL Hematocrit 47 40-54 % Mean Corpuscular Volume 91 80-99 fL Mean Corpuscular Hemoglobin 33 25-34 pg Mean Corpuscular Hemoglobin Concent 36 32-36 g/dL Red Cell Distribution Width 11.9 10.0-14.5 % Platelet Count 218 130-400 10^3/uL Mean Platelet Volume 10.0 9.0-12.2 fL Immature Granulocyte % (Auto) 0 % Neutrophils (%) (Auto) 63 42-75 % Lymphocytes (%) (Auto) 28 12-44 % Monocytes (%) (Auto) 7 0-12 % Eosinophils (%) (Auto) 2 0-10 % Basophils (%) (Auto) 1 0-10 % Neutrophils # (Auto) 6.5 1.8-7.8 10^3/uL Lymphocytes # (Auto) 2.9 1.0-4.0 10^3/uL Monocytes # (Auto) 0.7 0.0-1.0 10^3/uL Eosinophils # (Auto) 0.2 0.0-0.3 10^3/uL Basophils # (Auto) 0.1 0.0-0.1 10^3/uL Immature Granulocyte # (Auto) 0.0 0.0-0.1 10^3/uL Sodium Level 136 135-145 MMOL/L Potassium Level 3.8 3.6-5.0 MMOL/L Chloride Level 101 98-107 MMOL/L Carbon Dioxide Level 22 21-32 MMOL/L Anion Gap 13 5-14 MMOL/L Blood Urea Nitrogen 15 7-18 MG/DL Creatinine 1.21 0.60-1.30 MG/DL Estimat Glomerular Filtration Rate 81 BUN/Creatinine Ratio 12 Glucose Level 89 70-105 MG/DL Calcium Level 9.5 8.5-10.1 MG/DL Corrected Calcium 8.5-10.1 MG/DL Total Bilirubin 0.6 0.1-1.0 MG/DL Aspartate Amino Transf (AST/SGOT) 21 5-34 U/L Alanine Aminotransferase (ALT/SGPT) 37 0-55 U/L Alkaline Phosphatase 68 40-136 U/L Total Protein 7.5 6.4-8.2 GM/DL Albumin 4.7 H 3.2-4.5 GM/DL Lipase 25 8-78 U/L My Orders Orders - BERNARD FERGUSON MD Comprehensive Metabolic Panel (05/05/23 20:08) Lipase (05/05/23 20:08) Ed Iv/Invasive Line Start (05/05/23 20:08) Cbc With Automated Diff (05/05/23 20:08) Ns Iv 1000 Ml (Sodium Chloride 0.9%) (05/05/23 20:08) Vital Signs/I&O 05/05/23 05/05/23 05/05/23 19:52 19:52 21:12 Temp 36.2 36.2 Pulse 90 90 86 Resp 18 18 16 B/P (MAP) 150/101 150/101 (117) 134/93 Pulse Ox 97 97 98 O2 Delivery Room Air Room Air Room Air Capillary Refill : Less Than 3 Seconds Blood Pressure Mean: 117 Progress Note #1: Progress Note Potential diagnosis of dehydration, heat illness, heat exposure, heat exhaustion. Obtain peripheral IV access and check comprehensive metabolic panel, complete blood count, urinalysis. Administer normal saline 1 L IV fluid bolus for hydration and allowed to rest in the room. Progress Note #2: Progress Note Comprehensive metabolic panel did not show any acute significant electrolyte imbalance or renal failure. His complete blood count did not show an elevated white blood cell count and he was not anemic. He was feeling better as he was drinking some fluids laying on the bed and getting IV fluids. We will cancel the urinalysis and discharged home as his vital signs have all remained stable and he was feeling better. Counseled on heat illness and trying to avoid being exposed to the heat in the next few days. Continue to drink plenty of fluids and stay well-hydrated. 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 Departure Impression Primary Impression: Heat exhaustion Qualified Codes: T67.5XXA - Heat exhaustion, unspecified, initial encounter Additional Impressions: Dehydration Near syncope Disposition: 01 HOME, SELF-CARE Condition: Improved Departure-Patient Inst. Decision time for Depature: 21:09 Referrals: NO,LOCAL PHYSICIAN (PCP) Primary Care Physician [facility] [place] Instructions: Heat Illness ED, Dehydration, Adult ED, Near Fainting (DC) Add. Discharge Instructions: Stay well hydrated and try to avoid being exposed to the excessive heat this weekend especially. 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 Check back with clinic for continued concerns. All discharge instructions reviewed with patient and/or family. Voiced understanding. Work/School Note: Work Release Form Date Seen in the Emergency Department: May 05, 2023 Return to Work: May 06, 2023 Restrictions: Return-No Fever (24hrs) Other Restrictions Listed Below: For the next week do not work in Hot areas or exposed to outdoors/heat BERNARD FERGUSON MD May 05, 2023 20:57
[2023-05-05 21:12] VITALS: BP 134/93
== END 2023-05-05 21:14 | disposition home or self-care (01) ==
LOC: EDUNIT# 19:50 → ER FS 19:52
DX: T67.5XXA Heat exhaustion, unspecified, initial encounter (principal); E86.0 Dehydration; R55 Syncope and collapse; F17.210 Nicotine dependence, cigarettes, uncomplicated; Z28.310 Unvaccinated for COVID-19; X30.XXXA Exposure to excessive natural heat, initial encounter
CPT/HCPCS: 36415; 80053; 83690; 85025